=== PATIENT | male | born 1965 | race Caucasian/White ===

== ENCOUNTER 2021-06-12 16:48 | Inpatient (IN) | payer OTHER ==
[~2021-06-12] VITALS: Ht 190.5 cm; Wt 112.5 kg
--- NOTE | ~2021-06-12 | EMS ---
[place] [address] EMS Patient Care Report Name: IBETH DUQUE Room: [address] IN [facility]#: [id number] Admission: 06/12/21 Attend Phys: Josie Rivas MD Discharge: Date of : [birth year] Report #: [id number] THIS REPORT FOR: //name// Report Transmitted: 06/13/2021 11:28 EMS Care Summary [facility] Incident [id number] @ 06/12/2021 15:58 Incident Location [address] [place] [address] Patient IBETH DUQUE Male, 56 Years 1965 Patient Address [address] [place] [address] Patient History Asthma,Cardiac Arrythmia,Hypertension (HTN),Myocardial Infarction (MN), Patient Allergies No known allergies, Patient Medications Lisinopril, Albuterol, Chief Complaint I tested positive a week ago Disposition Transported No Lights/[place] Dispatch Reason Breathing Problem Transported To [facility] Narrative Med 2 response requested for shortness of air at [address] [place] [address]. Med 2 copied the call and began our response to the scene. We [place] [address] EMS Patient Care Report Name: IBETH DUQUE Room: [address] IN [facility]#: [id number] Admission: 06/12/21 Attend Phys: Joise Rivas MD Discharge: Date of : 69 Report #: [id number] Standing at the front door to the home we located a male. He's alert with a GCS of 15. He felt short of air with inspiration and expiration. His family on scene advised he tested positive for COVID a week prior. Patient was very anxious and began to hyperventilate. His family advised that he has sever anxiety. He was asked to have a seat on the cot so we could get him loaded and assess him further. Patient was so anxious he got up from the cot and tried to run back into his residence. We were able to get him to come sit on the cot again so we could continue our assessment. He was placed on oxygen via NC at 2 lpm more for comfort purposes. Lungs were clear with mild labored breathing. He was secured and taken to the ambulance and placed inside. Vitals were monitored. 12 lead ECG obtained. IV access obtained in the left AC with fluid attached. He was given solumedrol IV. Patient began to get anxious again as he felt the back of the ambulance was not cool enough. We explained that it takes a bit to cool off based on the 90 + degree weather outside. He was given a cold pack for the back of his neck. He requested to go to [facility] for further evaluation. We began our transport to the ER. He was monitored during transport. He stated that the oxygen was not helping him as much as he'd like. He requested to be given medication to fix his COVID symptoms. We tried to calm and reassure him that fluid would help. Patient then took a phone call on his cellphone. He was able to speak in full sentences without any distress noted. Once he was off the phone he began to complain of increased shortness of air. He was then coached to slow his breathing and take deeper breaths. Report was called in to the ER 15 min prior via [employer] radio. We were advised that they were on high volume however patient still wanted to continue. Upon arrival to the ER patient was taken inside and to ER 9 where he was moved. Report was given to the ER and signatures were obtained. Med 2 transferred care and returned to service. Initial Vitals @16:13P: 130,R: 22,BP: 110/50,Pain: 0/10,GCS: 15,Glucose: 100,SpO2: 96,Revised Trauma: 12, @16:38P: 137,R: 22,BP: 106/70,GCS: 15,SpO2: 99,Revised Trauma: 12, @16:25P: 145,R: 22,BP: 108/70,GCS: 15,SpO2: 96,Revised Trauma: 12, @16:13P: 90,R: 20,BP: 109/51,GCS: 15,SpO2: 97,Revised Trauma: 12, Assessments @16:19MENTAL:Place Oriented,Person Oriented,Time Oriented,Event Oriented,SKIN:HEENT:LUNG SOUNDS:ABDOMEN:PELVIS//GI:EXTREMITIES:PULSE:NEURO:@16:50MENTAL:Person Oriented,Event Oriented,Time Oriented,Place Oriented,SKIN:HEENT:LUNG SOUNDS:ABDOMEN:PELVIS//GI:EXTREMITIES:PULSE:NEURO: Impression COVID-19 - [place] [address] EMS Patient Care Report Name: IBETH DUQUE Room: 170[address] [facility] IN [place]#: [id number] Admission: 06/12/21 Attend Phys: Josie Rivas MD Discharge: Date of : [birth year] Report #: [id number] Procedures @16:13ALS AssessmentResponse: UnchangedSucceeded@16:31Lactated Ringers 200cc (20 ga) Site: Antecubital-LeftResponse: UnchangedSucceeded@16:32Solu-Medrol - 125 Milligrams (mg) - Intravenous (IV)Response: Improved@16:2512-Lead ECGResponse: UnchangedSucceeded@16:19Oxygen FlowRate: 3 Device: Nasal Cannula (NC) Response: ImprovedSucceeded Timeline 15:58,Call Received 15:58,Dispatched 15:59,En Route 16:12,On Scene 16:13,At Patient 16:13,BP: 110/50 M,PULSE: 130,RR: 22 R,SPO2: 96 Ox,ETCO2: ,B,PAIN: 0,GCS: 15, 16:13,BP: 109/51 M,PULSE: 90,RR: 20 R,SPO2: 97 Ox,ETCO2: ,BG: ,PAIN: ,GCS: 15, 16:13,ALS Assessment,Response: UnchangedSucceeded, 16:19,Oxygen FlowRate: 3 Device: Nasal Cannula (NC) Response: ImprovedSucceeded, 16:25,12-Lead ECG,Response: UnchangedSucceeded, 16:25,BP: 108/70 M,PULSE: 145,RR: 22 R,SPO2: 96 Ox,ETCO2: ,BG: ,PAIN: ,GCS: 15, 16:31,Lactated Ringers 200cc 20 ga Site: Antecubital-Left,Response: UnchangedSucceeded, 16:32,Solu-Medrol - 125 Milligrams (mg) - Intravenous (IV),Response: Improved 16:38,BP: 106/70 M,PULSE: 137,RR: 22 R,SPO2: 99 Ox,ETCO2: ,BG: ,PAIN: ,GCS: 15, 16:45,Depart Scene 16:54,At Destination 17:22,Call Closed Disclaimer v1.1 Copyright 2020 [employer] This EMS Care Summary contains data elements from the applicable legal record (which may be displayed differently). It is designed to provide pertinent information for the following purposes: continuity of care, clinical quality, and state data reporting. The complete legal record is available to ED staff and administrators of the receiving hospital in [employer] Patient Tracker. All data is provided "as is."
[2021-06-12 16:52] VITALS: BP 145/101
[2021-06-12] MEDS ORDERED: CARVEDILOL25 MG PO (16:53)
[2021-06-12] MEDS ORDERED: FLOMAX0.4 MG PO (16:53)
[2021-06-12] MEDS ORDERED: BYSTOLIC10 MG PO (16:54)
[2021-06-12] MEDS ORDERED: LASIX 40 MG TAB40 MG PO (16:54)
[2021-06-12] MEDS ORDERED: NIFEDIPINE ER90 M1 PO (16:54)
[2021-06-12] MEDS ORDERED: NIFEDIPINE ER30 M1 PO (16:54)
[2021-06-12 17:47] LABS: HEMATOCRIT 43.9 % (42.0-52.0); MCH 27.1 pg (26.0-34.0); MCHC 34.1 g/dL (28.0-37.0); MCV 79.5 fL (80.0-100.0); MPV 11.1 fl. (7.2-11.1); NUCLEATED RBCS 0 /100WBC; RBC 5.52 mil/uL (4.50-6.00); RDW-CV 13.8 % (10.5-14.5); WBC 10.5 thou/uL (4.0-11.0)
[2021-06-12 17:53] LABS: CALCIUM 8.4 mg/dL (8.5-10.1); CREATININE 6.5 mg/dL (0.6-1.3)
[2021-06-12 17:54] LABS: POTASSIUM 2.4 mmol/L (3.5-5.1)
[2021-06-12 18:03] LABS: ALBUMIN 2.5 g/dL (3.4-5.0); TOTAL BILIRUBIN 0.5 mg/dL (<0.1-1.0)
[2021-06-12 18:23] LABS: MAGNESIUM 2.8 mg/dL (1.8-2.4); PHOSPHORUS* 5.1 mg/dL (2.5-4.9)
[2021-06-12 18:41] LABS: ABSOLUTE LYMPHOCYTES 0.3 thou/uL (0.8-5.3); ABSOLUTE MONOCYTES 0.1 thou/uL (0.0-1.2); ABSOLUTE NEUTROPHILS 10.1 thou/uL (1.6-8.1)
[2021-06-12 18:43] LABS: PLATELET ESTIMATE DECREASED
[2021-06-12 18:44] LABS: LARGE PLATELETS FEW
[2021-06-12 18:46] LABS: PLATELET COUNT* 51 thou/uL (150-400)
[2021-06-12 18:47] LABS: GIANT PLATELETS OCCASIONAL
[2021-06-12 23:43] VITALS: BP 118/78
[2021-06-13 03:00] VITALS: BP 151/89
[2021-06-13 06:14] LABS: ABSOLUTE LYMPHOCYTES 0.3 thou/uL (0.8-5.3); ABSOLUTE MONOCYTES 0.2 thou/uL (0.0-1.2); ABSOLUTE NEUTROPHILS 9.4 thou/uL (1.6-8.1); BASOPHILS 0.1 %; EOSINOPHILS 0.1 %; HEMATOCRIT 38.8 % (42.0-52.0); HEMOGLOBIN 13.1 gm/dL (14.0-18.0); LYMPHOCYTES 3.3 %; MCH 27.1 pg (26.0-34.0); MCHC 33.6 g/dL (28.0-37.0); MCV 80.5 fL (80.0-100.0); MONOCYTES 1.8 %; MPV 10.1 fl. (7.2-11.1); NUCLEATED RBCS 0 /100WBC; PLATELET COUNT* 54 thou/uL (150-400); POLYS 94.7 %; RBC 4.82 mil/uL (4.50-6.00); WBC 9.9 thou/uL (4.0-11.0)
[2021-06-13 06:29] LABS: CALCIUM 8.1 mg/dL (8.5-10.1); CREATININE 6.2 mg/dL (0.6-1.3); POTASSIUM 3.6 mmol/L (3.5-5.1)
[2021-06-13 08:33] VITALS: BP 136/100
[2021-06-13 12:33] VITALS: BP 124/84
[2021-06-13] MEDS ORDERED: HYDRALAZINE 5050 MG PO (14:03)
[2021-06-13] MEDS ORDERED: BYSTOLIC10 MG PO (14:04)
--- NOTE | 2021-06-13 14:23 | EKG ---
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 : 1965 Requested By: Demi Frias Order Number: [id number] MD: Mello Polk Measurements Intervals [place] Rate: 135 P: NM: QRS: -10 QRSD: 107 T: 181 QT: 332 QTc: 498 Interpretive Statements Atrial fibrillation Repol abnrm suggests ischemia, diffuse leads No previous ECG available for comparison Electronically Signed On 06-13-2021 14:22:52 CDT by Mello Polk [email or web address] <ELECTRONICALLY SIGNED> By: Mello Polk MD, [facility] 06/13/21 1422 1745 1745 Mello Polk MD, [facility] /EPI
[2021-06-13 15:54] VITALS: BP 118/79
--- NOTE | 2021-06-13 16:11 | 2DMMODE ---
[place] [address] 2 D/M-MODE ECHOCARDIOGRAM Name: IBETH DUQUE Room: [address] IN [facility]#: [id number] Admission: 06/12/21 Attend Phys: Josie Rivas, Discharge: Date of : [birth year] Date of Service: 06/13/21 1611 Report #: [id number] THIS REPORT FOR: cc: Felisha Pastor Angela Jo RNP Liston, Michael J. MD [facility] ~ APPROVED REPORT Study performed: 06/13/2021 10:51:12 EXAM: Comprehensive 2D, Doppler, and color-flow Echocardiogram Patient Location: In-Patient Room #: ER Status: routine BSA: 2.15 HR: 90 bpm BP: 127/80 mmHg Rhythm: NSR Other Information Study Quality: Good Indications Dyspnea 2D Dimensions IVSd: 10.41 (7-11mm) LVOT Diam: 20.11 (18-24mm) LVDd: 44.71 mm PWd: 10.45 (7-11mm) Ascending Ao: 34.06 (22-36mm) LVDs: 24.80 (25-40mm) Aortic Root: 32.70 mm Volumes Left Atrial Volume (Systole) LA ESV Index: 17.90 mL/m2 Aortic Valve AoV Peak David.: 1.23 m/s AO Peak Gr.: 6.04 mmHg LVOT Max P.39 mmHg AO Mean Gr.: 3.12 mmHg LVOT Mean P.21 mmHg LVOT Max V: 1.05 m/s AO V2 VTI: 18.43 cm LVOT Mean V: 0.68 m/s MARIA L (VTI): 3.26 cm2 LVOT V1 VTI: 18.92 [place] [address] 2 D/M-MODE ECHOCARDIOGRAM Name: IBETH DUQUE Room: [address] IN [facility]#: [id number] Admission: 06/12/21 Attend Phys: Josie Rivas, Discharge: Date of : 69 Date of Service: 06/13/21 1611 Report #: [id number] TDI Lateral E' David.: 0.10 m/s Pulmonary Valve PV Peak David.: 0.97 m/s PV Peak Gr.: 3.78 mmHg Left Ventricle The left ventricle is normal size. There is normal LV segmental wall motion. There is normal left ventricular wall thickness. Left ventricular systolic function is normal. LVEF is 65-70%. This study is not technically sufficient to allow evaluation of the LV diastolic function due to atrial fibrillation. Right Ventricle The right ventricle is normal size. The right ventricular systolic function is normal. Atria The left atrium size is normal. The right atrium size is normal. Aortic Valve The aortic valve is normal in structure. No aortic regurgitation is present. There is no aortic valvular stenosis. Mitral Valve The mitral valve is normal in structure. Trace mitral regurgitation. No evidence of mitral valve stenosis. Tricuspid Valve The tricuspid valve is normal in structure. Trace tricuspid regurgitation. Unable to assess PA pressure. Pulmonic Valve The pulmonary valve is normal in structure. There is no pulmonic valvular regurgitation. Great Vessels The aortic root is normal in size. IVC is not well visualized. Pericardium There is no pericardial effusion. <Conclusion> The left ventricle [place] [address] 2 D/M-MODE ECHOCARDIOGRAM Name: NETOIBETH Room: [address] IN [facility].#: [id number] Admission: 06/12/21 Attend Phys: Josie Rivas, Discharge: Date of : 69 Date of Service: 06/13/21 1611 Report #: [id number] There is normal left ventricular wall thickness. Left ventricular systolic function is normal. LVEF is 65-70%. This study is not technically sufficient to allow evaluation of the LV diastolic function due to atrial fibrillation. There is normal LV segmental wall motion. Trace mitral regurgitation. Trace tricuspid regurgitation. <ELECTRONICALLY SIGNED> By: Santi Alonso MD, FACC 06/13/211610 10 10 Santi Alonso MD, FAC /INF
[2021-06-13 16:54] LABS: BE -6.5 mmol/L (-2 to +3); PCO2 24.9 mmHg (35.0-45.0); pH 7.428 (7.340-7.450)
[2021-06-13 16:57] LABS: PO2 174.4 mmHg (75.0-100.0)
[2021-06-13 19:37] VITALS: BP 128/83
[2021-06-13 19:44] VITALS: BP 128/83
[2021-06-13 21:39] LABS: URINE BILIRUBIN NEGATIVE (Negative); URINE BLOOD 2+ (Negative); URINE CLARITY CLEAR; URINE COLOR YELLOW; URINE GLUCOSE-RANDOM NEGATIVE (Negative); URINE KETONES NEGATIVE (Negative); URINE LEUKOCYTES NEGATIVE (Negative); URINE NITRITE NEGATIVE (Negative); URINE PROTEIN 2+ (Negative); URINE SPECIFIC GRAVITY 1.015 (1.005-1.030); URINE UROBILINOGEN 0.2 E.U./dl (0.2-1.0)
[2021-06-13 21:46] LABS: CASTS None Seen /LPF (None Seen); SQUAMOUS NONE SEEN /LPF (0-3)
[2021-06-13 21:47] LABS: BACTERIA 1-9 Few /HPF (None Seen); CRYSTALS None Seen /LPF (None Seen); URINE RBC 0-2 Rare /HPF (0-2); URINE WBC 0-5 Rare /HPF (0-5)
[2021-06-14] VITALS (8 sets, daily range): BP systolic 112–137; BP diastolic 75–95
[2021-06-14 02:27] LABS: HEMATOCRIT 36.7 % (42.0-52.0); HEMOGLOBIN 12.2 gm/dL (14.0-18.0); MCHC 33.2 g/dL (28.0-37.0); MCV 81.4 fL (80.0-100.0); MPV 10.5 fl. (7.2-11.1); NUCLEATED RBCS 0 /100WBC; PLATELET COUNT* 62 thou/uL (150-400)
[2021-06-14 02:35] LABS: ALBUMIN 2.2 g/dL (3.4-5.0); CALCIUM 8.1 mg/dL (8.5-10.1); POTASSIUM 3.2 mmol/L (3.5-5.1); TOTAL BILIRUBIN 0.2 mg/dL (<0.1-1.0)
[2021-06-14 02:58] LABS: CREATININE 6.1 mg/dL (0.6-1.3); TOTAL PROTEIN 5.9 g/dL (6.4-8.2)
[2021-06-14 04:21] LABS: ABSOLUTE LYMPHOCYTES 0.2 thou/uL (0.8-5.3); ABSOLUTE MONOCYTES 0.8 thou/uL (0.0-1.2); PLATELET ESTIMATE DECREASED
[2021-06-14 04:23] LABS: LARGE PLATELETS FEW
[2021-06-14 07:09] LABS: GLYCOHEMOGLOBIN (HGB A1C) 6.7 % (4.8-5.6)
--- NOTE | 2021-06-14 07:23 | NUR ---
RECEIVED PT FROM ED AT APPROX 0230. PT IS AWAKE AND ORIENTED X4. PT IS NOT IN DISTRESS, NO DESATURATIONS ON 2L/NC. PT DENIES PAIN/DISCOMFORT. ASSESSMENT DONE CHARTED. NO ACUTE CHANGES THIS SHIFT. CALL LIGHT WITHIN REACH. HOURLY ROUNDING DONE FOR PT SAFETY.
--- NOTE | 2021-06-14 09:40 | NUR ---
CM ASSESSMENT: PT IS A&P, INDEPENDENT WITH ADL'S, ACTIVE AND WORKS OUTSIDE THE HOME. PT RESIDES AT HOME WITH HIS DTR. PT USES 0 DME. PT HAS 0 HX OF HH OR SNF. CM D/C PLANNING NEEDS TBD AT THIS TIME. CM WILL REMAIN AVAILABLE TO ASSIST AND FOLLOW NEEDED.
[2021-06-15 00:46] VITALS: BP 132/86
[2021-06-15 04:26] LABS: MCH 27.2 pg (26.0-34.0)
[2021-06-15 04:28] LABS: ABSOLUTE EOSINOPHILS 0.1 thou/uL (0.0-0.7); ABSOLUTE LYMPHOCYTES 0.6 thou/uL (0.8-5.3); ABSOLUTE NEUTROPHILS 11.2 thou/uL (1.6-8.1); BASOPHILS 0.2 %; HEMATOCRIT 36.4 % (42.0-52.0); HEMOGLOBIN 12.2 gm/dL (14.0-18.0); LYMPHOCYTES 4.9 %; MCHC 33.4 g/dL (28.0-37.0); MCV 81.6 fL (80.0-100.0); MONOCYTES 7.6 %; MPV 9.4 fl. (7.2-11.1); NUCLEATED RBCS 0 /100WBC; PLATELET COUNT* 50 thou/uL (150-400); POLYS 86.3 %; RBC 4.46 mil/uL (4.50-6.00); RDW-CV 14.3 % (10.5-14.5)
[2021-06-15 04:29] LABS: CALCIUM 8.2 mg/dL (8.5-10.1); CREATININE 5.9 mg/dL (0.6-1.3); POTASSIUM 3.5 mmol/L (3.5-5.1)
[2021-06-15 04:33] VITALS: BP 135/107
--- NOTE | 2021-06-15 05:43 | NUR ---
ASSUMED PT CARE AT APPROX 1930. PT IS AWAKE AND ORIENTED X4. PT IS TRACING AFIB ON THE SAWMILL HAND. PT DENIES CHEST PAIN/DISCOMFORT, HAS SOME HEADACHE RELIEVED BY PAIN MEDS GIVEN PER MAR. PT HAD 6 BEATS OF VTACH AT APPROX 0345, PT IS TACHYCARDIC WITH ACTIVITY (110-130s) BUT IS NOT SUSTAINED AND RATE WILL GO DOWN AT REST, PT DENIES CHEST PAIN/DISCOMFORT. PT IS CLOSELY MONITORED.
[2021-06-15 08:00] VITALS: BP 145/65
[2021-06-15 12:00] VITALS: BP 135/83
--- NOTE | 2021-06-15 15:06 | NUR ---
ASSUME CARE OF PATIENT AT 0700. PATIENT IS AWAKE IN ROOM. COVID PCR IS POSITIVE. PATIENT DOES NOT NEED ISOLATION AT THIS TIME. 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 IV SITE LAC PATENT.
[2021-06-15 16:16] VITALS: BP 142/95
--- NOTE | 2021-06-15 17:48 | NUR ---
patient had an uneventful day. rested in bed most of the day. will start new iv site. still in atrial fibrillation.
[2021-06-15 20:00] VITALS: BP 139/87
[2021-06-15 21:06] LABS: IgA 183 mg/dL (90-386); IgG 880 mg/dL (603-1613); IgM 81 mg/dL (20-172)
[2021-06-16] VITALS (7 sets, daily range): BP systolic 105–144; BP diastolic 62–97
--- NOTE | 2021-06-16 04:47 | NUR ---
ASSUMED PT CARE AT APPROX 1930. PT IS AWAKE AND ORIENTED X4. 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 PT DENIES CHEST PAIN/DISCOMFORT. INTERMITTENT RUNS OF VTACH NOTED ON TELE, PT IS TACHYCARDIC WITH ACTIVITY (110-130s) RATE WILL GO DOWN AT REST TO THE 1TEENS, PT DENIES CHEST PAIN/DISCOMFORT. PT IS CLOSELY MONTORED.
[2021-06-16 08:51] LABS: ABSOLUTE BASOPHILS 0.1 thou/uL (0.0-0.2); ABSOLUTE EOSINOPHILS 0.2 thou/uL (0.0-0.7); ABSOLUTE LYMPHOCYTES 0.9 thou/uL (0.8-5.3); ABSOLUTE MONOCYTES 1.2 thou/uL (0.0-1.2); ABSOLUTE NEUTROPHILS 13.5 thou/uL (1.6-8.1); BASOPHILS 0.9 %; EOSINOPHILS 1.2 %; HEMATOCRIT 37.6 % (42.0-52.0); HEMOGLOBIN 12.3 gm/dL (14.0-18.0); LYMPHOCYTES 5.7 %; MCH 26.9 pg (26.0-34.0); MCHC 32.8 g/dL (28.0-37.0); MONOCYTES 7.6 %; MPV 10.3 fl. (7.2-11.1); NUCLEATED RBCS 0 /100WBC; PLATELET COUNT* 69 thou/uL (150-400); POLYS 84.6 %; RBC 4.58 mil/uL (4.50-6.00); RDW-CV 14.2 % (10.5-14.5); WBC 15.9 thou/uL (4.0-11.0)
[2021-06-16 09:05] LABS: CALCIUM 8.6 mg/dL (8.5-10.1); CREATININE 5.3 mg/dL (0.6-1.3); POTASSIUM 4.1 mmol/L (3.5-5.1)
--- NOTE | 2021-06-16 09:23 | EKG ---
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 : 1965 Requested By: Cecilia See Order Number: [id number] Reading MD: Mello Polk Measurements Intervals [place] Rate: 103 P: MN: QRS: -15 QRSD: 97 T: 172 QT: 416 QTc: 545 Interpretive Statements Atrial fibrillation left ventricular hypertrophy with repolarization late transition Prolonged QT interval Compared to ECG 06/12/2021 17:45:05 Prolonged QT interval now present Early repolarization no longer present Possible ischemia no longer present rate has slowed Electronically Signed On 06-16-2021 9:22:53 CDT by Mello Polk [email or web address] <ELECTRONICALLY SIGNED> By: Mello Polk MD, FACC 06/16/21 0922 1639 1639 Mello Polk MD, FAC /EPI
--- NOTE | 2021-06-16 11:17 | CON ---
[address] [address] CONSULTATION Name: IBETH DUQUE Room: [address] IN M.[facility].#: [id number] Admission: 06/12/21 Attend Phys: Josie Rivas MD Discharge: Date of : [birth year] Report #: [id number] THIS REPORT FOR: cc: Felisha Pastor Angela Jo RNP Vasudeva, Amita MD ~ DATE OF CONSULTATION: 06/13/2021 NEPHROLOGY CONSULTATION CONSULTING PHYSICIAN: Dr. Rivas. REASON FOR CONSULTATION: Acute kidney injury on chronic kidney disease stage 4. REASON FOR ADMISSION: Shortness of breath, COVID. HISTORY OF PRESENT ILLNESS: This is a 56-year-old male with history of chronic kidney disease stage 4, due to uncontrolled hypertension, saw me in the office in 2018 and has not followed ever since, came in with shortness of breath. He was diagnosed with COVID-19 about 10 days prior. He has multifocal pneumonia at this point and his creatinine was also 6.5 on admission. With IV fluids, his creatinine has come down to 6.2. The patient states he has been urinating a little bit more. He also received dose of Toradol yesterday in the ER. He also has elevated troponin. Cardiology has been consulted on him. He was also in AFib with RVR when he came in. His creatinine in 2019 was 3.01. He does not take any NSAIDs at home. ALLERGIES: No known drug allergies. REVIEW OF SYSTEMS: As mentioned in history of present illness, otherwise 10-point review of systems are negative. PAST MEDICAL HISTORY: Includes hypertension, benign prostatic hypertrophy. He has chronic kidney disease stage 4. His baseline creatinine is around 3.0 back in 2019. Does not follow with Nephrology, has not followed with Nephrology since 2018. PAST SURGICAL HISTORY: None reported. HOME MEDICATIONS: Include tamsulosin, carvedilol, nifedipine, nebivolol, furosemide 40 mg once a day. FAMILY HISTORY: Reviewed and noncontributory. PHYSICAL EXAMINATION: [place] [address] CONSULTATION Name: IBETH DUQUE Room: [address]#: [id number] Admission: 06/12/21 Attend Phys: Josie Rivas MD Discharge: Date of : [birth year] Report #: [id number] VITAL SIGNS: His blood pressure is 136/100, pulse rate was 92, temperature 36.8, and respiratory rate was 18, and pulse ox was 95% on 2 liters oxygen via nasal cannula. GENERAL: He is awake, alert, oriented x 3. HEENT: Atraumatic and normocephalic. Conjunctivae normal. Ears, nose and throat normal. Mucous membranes are moist. NECK: There is no JVD. CHEST: Bilateral decreased breath sounds. No crackles. CARDIOVASCULAR: S1, S2 normal. No murmurs. ABDOMEN: Soft, nondistended, nontender. LOWER EXTREMITIES: There is no edema. NEUROLOGIC: Function grossly intact. PSYCHOLOGIC: Mood and affect seem to be normal. LABORATORY DATA: His hemoglobin is 13.1. His sodium is 132. His platelet count is 54. Potassium was 3.6, CO2 was 15, BUN was 130, creatinine was 6.2, which is down from 6.5. Other labs are reviewed. His imaging nuclear scan and chest x-ray were reviewed. ASSESSMENT AND PLAN: 1. Acute kidney injury on chronic kidney disease, stage 4. Chronic kidney disease is likely due to be uncontrolled hypertension. Has not followed with Nephrology since 2018 and his creatinine in 2018 and 2019 was around 3.0. He comes in with a creatinine of 6.5 in the setting of some volume depletion and COVID pneumonia. Need to check a UA and renal imaging. 2. COVID-19 pneumonia, defer to primary team for treatment. 3. Paroxysmal atrial fibrillation with rapid ventricular response. Will defer to Cardiology. They are checking an echocardiogram and they are also starting him on Eliquis and they are checking his thyroid studies. 4. Thrombocytopenia. We will defer to Internal Medicine for management of that. 5. Anion gap metabolic acidosis in the setting of renal insufficiency. 6. Elevated troponin. We will defer to Cardiology. 7. Hypermagnesemia. 8. Hypertension. 9. Hypokalemia. 10. Mild hyponatremia in the setting of impaired free water excretion. PLAN: 1. We will change his fluids and we will add some bicarbonate to them. Continue IV fluids for now. 2. Check a UA and renal ultrasound. 3. CPK checked, it was only around 500. [place] [address] CONSULTATION Name: IBETH DUQUE Room: [address] IN [facility]#: [id number] Admission: 06/12/21 Attend Phys: Josie Rivas MD Discharge: Date of : 69 Report #: [id number] 4. Hold off on Lasix right now. 5. Check morning labs and avoid nephrotoxic agents. 6. Avoid magnesium-containing compounds. Thank you for the consultation. We will continue to follow with you. Discussed with the patient and primary team and nurse. <ELECTRONICALLY SIGNED> By: Desire Arrieta MD 06/16/21 1117 0932 [id number] Arrieta MD /nt
[2021-06-16 13:08] LABS: LAMBDA FREE LIGHT CHAINS 67.5 mg/L (5.7-26.3)
--- NOTE | 2021-06-16 15:25 | NUR ---
PLAN OF CARE: PHYSICIAN INFORMS THAT THE PT WILL LIKELY REMAIN INPT THROUGH THE WEEKEND. CM D/C PLANNING NEEDS TBD AT THIS TIME. CM WILL REMAIN AVAILABLE TO ASSIST AND FOLLOW NEEDED.
--- NOTE | 2021-06-16 16:36 | EKG ---
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 : 1965 Requested By: Josie Rivas Order Number: [id number] Reading MD: Mello Polk Measurements Intervals [place] Rate: 113 P: [place]: QRS: -19 QRSD: 106 T: 154 QT: 354 QTc: 486 Interpretive Statements Atrial fibrillation Borderline left axis deviation Abnormal T, consider ischemia, lateral leads Compared to ECG 06/15/2021 16:39:51 Left ventricular hypertrophy no longer present Prolonged QT interval no longer present Electronically Signed On 06-16-2021 16:36:41 CDT by Mello Polk [email or web address] <ELECTRONICALLY SIGNED> By: Mello Polk MD, [facility] 06/16/21 1636 1216 1216 Mello Polk MD, [facility] /EPI
[2021-06-16 17:07] LABS: ANA INTERPRETATION Negative (())
[2021-06-17] VITALS: BP 123/85
[2021-06-17 03:49] LABS: HEMATOCRIT 35.7 % (42.0-52.0); HEMOGLOBIN 11.6 gm/dL (14.0-18.0); MCH 27.1 pg (26.0-34.0); MCHC 32.6 g/dL (28.0-37.0); MCV 83.1 fL (80.0-100.0); MPV 10.4 fl. (7.2-11.1); RBC 4.3 mil/uL (4.50-6.00); RDW-CV 14.2 % (10.5-14.5); WBC 15.9 thou/uL (4.0-11.0)
[2021-06-17 04:00] VITALS: BP 124/91
[2021-06-17 04:11] LABS: CALCIUM 8.3 mg/dL (8.5-10.1); POTASSIUM 3.9 mmol/L (3.5-5.1)
[2021-06-17 04:17] LABS: ALBUMIN 2.2 g/dL (3.4-5.0); MAGNESIUM 1.9 mg/dL (1.8-2.4); POTASSIUM 3.9 mmol/L (3.5-5.1); TOTAL BILIRUBIN 0.3 mg/dL (<0.1-1.0); TOTAL PROTEIN 5.4 g/dL (6.4-8.2)
--- NOTE | 2021-06-17 04:58 | NUR ---
PT ALERT ORIENTED. UP AD LUIS MIGUEL IN ROOM. SENIOR PRINCIPAL ARCHITECT TRACING AFIB, RATE CONTROLLED. OCCASIONAL PVC AND ONE EPISOID OF 6 B VTACH.
[2021-06-17 07:32] VITALS: BP 146/91
--- NOTE | 2021-06-17 08:03 | NUR ---
ASSUMED CARE OF PT AT 0730. PT RESTING IN BED WATCHING TV WAITING FOR BREAKFAST. A&0X4, COMPLAINS OF SLIGHT HEADACHE BUT STATES HE NEEDS BREAKFAST AND HIS HEADACHE WILL GO AWAY. TRACING AFIB ON THE TRANSPORT RN-RATE IN THE 80'S-90'S. ON RA SAT UPPER 90'S, DENIES ANY SHORTNESS OF BREATH. PT UP AD LUIS MIGUEL IN ROOM. CARDIO AND NEPHRO CONSULTS IN PLACE. PT GOAL FOR TODAY IS CONVERT TO SINUS RHYTHM AND MAINTAIN HEART RATE BELOW 100. AM ASSESSMENT CHARTED. MEDICATIONS PER DEC. PT REPOSITIONS SELF. HOURLY ROUNDING OBSERVED. BED IN LOW POSITION. CALL LIGHT WITHIN REACH. WILL CONTINUE PLAN OF CARE.
[2021-06-17 12:00] VITALS: BP 122/88
[2021-06-17 16:00] VITALS: BP 123/75
[2021-06-18] VITALS: BP 118/66
--- NOTE | 2021-06-18 00:26 | NUR ---
PT ALERT ORIENTED. UP AD LUIS MIGUEL IN ROOM. PT CO PAIN IN IV. IV FLUSHES ALRIGHT. OFFERED TO CHANGE IV SITE. PT REFUSED. LOADER TRACING AFIB. RATE CONTROLLED.
[2021-06-18 03:53] LABS: HEMATOCRIT 35.9 % (42.0-52.0); HEMOGLOBIN 11.8 gm/dL (14.0-18.0); MCH 27.2 pg (26.0-34.0); MCHC 32.9 g/dL (28.0-37.0); MCV 82.7 fL (80.0-100.0); MPV 10.2 fl. (7.2-11.1); RBC 4.34 mil/uL (4.50-6.00); WBC 11.7 thou/uL (4.0-11.0)
[2021-06-18 04:00] VITALS: BP 110/80
[2021-06-18 04:44] LABS: ALBUMIN 2.2 g/dL (3.4-5.0); CALCIUM 8.3 mg/dL (8.5-10.1); CREATININE 4.7 mg/dL (0.6-1.3); MAGNESIUM 1.8 mg/dL (1.8-2.4); POTASSIUM 4.2 mmol/L (3.5-5.1); TOTAL BILIRUBIN 0.3 mg/dL (<0.1-1.0); TOTAL PROTEIN 6.2 g/dL (6.4-8.2)
[2021-06-18 07:08] LABS: HEPATITIS B SURFACE AG Negative (Negative)
[2021-06-18 07:45] VITALS: BP 135/99
[2021-06-18 12:03] VITALS: BP 96/75
--- NOTE | 2021-06-18 12:59 | NUR ---
Nutrition: Pt admitted with SOA. Assessed for LOS. H/o afib, CKD IV. Pt is on heart healthy diet, but would benefit from Renal diet - RD will change diet order. He is tolerating meals. Labs: BG 124, BUN 78, cr 4.7, GFR 13, alb 2, prealb 40.8. Wts are varied: 190# at admit, today 248# - PLEASE REWEIGH FOR ACCURACY. +BM. Altered nutrition-related lab values R/T renal FXN and diet order AEB labs above and no renal restrictions of diet. RD will order Renal diet. Please reweigh pt. Consider mild risk at this time. RD available via consult for needs.
[2021-06-18 17:37] VITALS: BP 126/78
--- NOTE | 2021-06-18 18:11 | NUR ---
NO ACUTE CHANGES THROUGHOUT SHIFT. REFER TO CHARTING. PT REFUSED IV DOXYCLYCLINE THIS AM-EDUCATION GIVEN AND DR MONACO NOTIFIED. ORDERS RECEIVED FOR PO ABX. PT DENIES ANY PAIN OR SHORTNESS OF BREATH THROUGHOUT SHIFT. UP TO RECLINER THIS AFTERNOON-TOLERATED WELL. TRACING AFIB ON THE BOX BUILDER. ON RA SAT UPPER 90'S. AM ASSESSMENT CHARTED. MEDICATIONS PER DEC. PT REPOSITIONS SELF. HOURLY ROUNDING OBSERVED. BED IN LOW POSITION. CALL LIGHT WITHIN REACH. WILL CONTINUE PLAN OF CARE.
[2021-06-18 20:00] VITALS: BP 164/85
[2021-06-19] VITALS: BP 108/71
[2021-06-19 04:21] VITALS: BP 124/76
[2021-06-19 04:36] LABS: HEMATOCRIT 32.1 % (42.0-52.0); HEMOGLOBIN 10.8 gm/dL (14.0-18.0); MCH 27.7 pg (26.0-34.0); MCHC 33.6 g/dL (28.0-37.0); MCV 82.6 fL (80.0-100.0); MPV 9.7 fl. (7.2-11.1); RBC 3.89 mil/uL (4.50-6.00); RDW-CV 14.1 % (10.5-14.5); WBC 8.9 thou/uL (4.0-11.0)
[2021-06-19 04:50] LABS: CALCIUM 8.2 mg/dL (8.5-10.1); CREATININE 4.7 mg/dL (0.6-1.3); POTASSIUM 3.9 mmol/L (3.5-5.1)
--- NOTE | 2021-06-19 05:55 | NUR ---
ASSUMED CARE OF PT AFTER REPORT AT 1930. PT A&OX4. VSS. PHYSICAL ASSESSMENT COMPLETED AND CHARTED. PT ON RA. PT TRACING SR ON TELE. PT UPADLIB TO RESTROOM. PT DENIES ANY PAIN. CALL LIGHT WITHIN REACH.
[2021-06-19 08:00] VITALS: BP 140/87
[2021-06-19] MEDS ORDERED: LOPRESSOR50 PO (11:12)
[2021-06-19] MEDS ORDERED: PACERONE 200 M200 M1 PO (11:12)
[2021-06-19] MEDS ORDERED: AZITHROMYCIN 2250 MG PO (11:12)
[2021-06-19] MEDS ORDERED: DILTIAZEM 24HR180 M1 PO (11:12)
[2021-06-19] MEDS ORDERED: ELIQUIS5 MG PO (11:12)
[2021-06-19] MEDS ORDERED: CEFDINIR300 MG PO (11:13)
[2021-06-19 11:33] VITALS: BP 140/87
--- NOTE | 2021-06-19 13:49 | NUR ---
ASSUMED CARE OF PT AT 0730. PT A&0X4, DENIES ANY PAIN OR SHORTNESS OF BREATH. TRACING SR ON THE PRODUCT STRATEGY DIRECTOR. ON RA SAT UPPER 90'S. PT UP AD LUIS MIGUEL IN ROOM, PT GOAL FOR TODAY IS DISCHARGE HOME. AM ASSESSMENT CHARTED. MEDICATIONS PER DEC. PT REPOSITIONS SELF. HOURLY ROUNDING OBSERVED. BED IN LOW POSITION. CALL LIGHT WITHIN REACH. WILL CONTINUE PLAN OF CARE.
--- NOTE | 2021-06-19 14:09 | NUR ---
DISCHARGE ORDERS RECEIVED. DISCHARGE INSTRUCTIONS, CARE NOTES, E SCRIPTS AND FOLLOW UP APPTS GIVEN TO PT. PT COMMUNICATES UNDERSTANDING OF DISCHARGE TEACHING. IV AND LUGGAGE REPAIRER REMOVED. PT DISCHARGED WITH ALL BELONGINGS AND PAPERWORK VIA WHEELCHAIR WITH NURSING STAFF TO SPOUSE OWN PERSONAL VEHICLE.
== END 2021-06-19 14:13 | disposition home or self-care (01) | DRG 177 ==
LOC: M.ERS 16:48 → M.2W 20:03 → M.TBA-ER 20:03 → M.2W 06-14 02:35
PROVIDERS: Internal Medicine; Nurse Practitioner Family; ADMIT Internal Medicine; ATTEND Internal Medicine
DX: U07.1 COVID-19 (principal); N17.0 Acute kidney failure with tubular necrosis; J12.82 Pneumonia due to coronavirus disease 2019; J96.01 Acute respiratory failure with hypoxia; N18.4 Chronic kidney disease, stage 4 (severe); E87.2 Acidosis; E87.1 Hypo-osmolality and hyponatremia; I42.8 Other cardiomyopathies; I13.0 Hypertensive heart and chronic kidney disease with heart failure and stage 1 through stage 4 chronic kidney disease, or unspecified chronic kidney disease; N40.0 Benign prostatic hyperplasia without lower urinary tract symptoms; E87.6 Hypokalemia; I48.0 Paroxysmal atrial fibrillation; E83.41 Hypermagnesemia; D69.6 Thrombocytopenia, unspecified; I50.9 Heart failure, unspecified; E66.9 Obesity, unspecified; Z68.31 Body mass index [BMI] 31.0-31.9, adult; Z82.49 Family history of ischemic heart disease and other diseases of the circulatory system; Z79.899 Other long term (current) drug therapy